=== PATIENT | male | born 2000 | race Caucasian/White ===

== ENCOUNTER 2023-02-28 19:21 | Emergency (ER) | payer SELFPAY ==
[~2023-02-28] VITALS: Ht 167.6 cm; Wt 89.8 kg
[2023-02-28] MEDS ORDERED: LIDOCAINE 1%-EPI 1:100,000 20 ML VIAL ONE (21:25)
[2023-02-28] MEDS ORDERED: SULFAMETH/TRIMETH 800/160 MG 1 UDTAB TABLET ONE (21:26)
[2023-02-28] MEDS ORDERED: HYDROCODONE/APAP 10/325MG TABLET ONE (21:26)
[2023-02-28] MEDS ORDERED: LIDOCAINE HCL/PF 1% 30 ML VIAL TP ONE (21:30)
[2023-02-28] MEDS ORDERED: SULFAMETH/TRIMETH 800/160 MG 1 UDTAB TABLET PO ONE (21:30)
[2023-02-28] MEDS ORDERED: HYDROCODONE/APAP 10/325MG TABLET PO ONE (21:30)
[2023-02-28] MEDS ORDERED: IBUPROFEN 400 MG TABLET ONE (22:23)
[2023-02-28] MEDS ORDERED: IBUPROFEN 400 MG TABLET PO ONE (22:30)
[2023-02-28 22:38] VITALS: BP 138/80; TEMP 98; O2SAT 98
== END 2023-02-28 22:39 | disposition home or self-care (01) ==
LOC: ER 19:28
DX: L03.011 Cellulitis of right finger (principal); W57.XXXA Bitten or stung by nonvenomous insect and other nonvenomous arthropods, initial encounter; Y93.89 Activity, other specified; Y92.89 Other specified places as the place of occurrence of the external cause; Y99.8 Other external cause status
CPT/HCPCS: 99284; 10060; J3490